=== PATIENT | male | born 1940 | race Caucasian/White ===

== ENCOUNTER 2019-08-18 06:56 | Day surgery (SDC) | payer OTHER ==
[~2019-08-18] VITALS: Ht 170.2 cm; Wt 65.8 kg
--- NOTE | ~2019-08-18 | O ---
[facility] [place] [address] OPERATIVE REPORT Name: ESTEFANY MULLER Room #: 150-2 [facility]#: [id number] Admission: 08/18/19 Attend Phys: Jaleel Uriostegui MD Discharge: Date of : 38 Report #: [id number] THIS REPORT FOR: //name// CC: RYNE Uriostegui Physician staff DATE OF SERVICE: 08/18/2019 PREOPERATIVE DIAGNOSES: Deviated nasal septum with nasal airway obstruction, chronic maxillary and ethmoid sinusitis. POSTOPERATIVE DIAGNOSES: Deviated nasal septum with nasal airway obstruction, chronic maxillary and ethmoid sinusitis. OPERATIVE PROCEDURE: Nasal septoplasty, endoscopic bilateral maxillary antrostomies with removal of polyps, bilateral complete ethmoidectomies. ANESTHESIA: General by laryngeal mask. DESCRIPTION OF PROCEDURE: The patient was taken to the operating room and placed in supine position. General anesthesia was induced by laryngeal mask. Once adequate general anesthesia was obtained, local nasal anesthesia was induced by submucoperichondrial injection of 1% lidocaine with 1:100,000 epinephrine and topical application of cocaine solution. The patient was then draped in a sterile manner. The patient had a nasal septal deviation primarily to the right side. A hemitransfixion incision was placed on the right side of the nose and the mucoperichondrium and mucoperiosteum was elevated off the septum. The cartilage was incised in front of the bony cartilaginous junction and a portion of cartilage and bone was removed from the midportion of the septum. There was a septal spur along the floor consisting of hypertrophic cartilage and a fracture of the maxillary crest. The cartilage was removed as a long strip, the maxillary crest was infractured and rongeured. After these maneuvers, the septum sat more in the midline. The hemitransfixion incision was then closed with 4-0 chromic suture and a 4-0 plain mattress sutures placed as well. The nasal endoscope was used to visualize the left nasal cavity and the middle turbinate was deviated medially. The uncinate process was incised using the microdebrider and then removed using the microdebrider. The natural opening of the maxillary sinus was located. It was filled with polyps and very swollen tissue. There was purulence within the maxillary sinus and this was suctioned and removed. An ethmoidectomy was performed by removing the ethmoidal bulla and then following the ethmoid air cells back to and through the basal lamella and then forward along the lamina papyracea and fovea ethmoidalis to complete the ethmoidectomy anteriorly. Surgiflo was placed into the ethmoid cavity for hemostasis. The exact same procedure was performed on the opposite side. The patient tolerated the procedure well. Blood loss approximately 25 mL. The [address] [address] OPERATIVE REPORT Name: ESTEFANY MULLER Room #: 150-2 [facility]#: [id number] Admission: 08/18/19 Attend Phys: Jaleel Uriostegui MD Discharge: Date of : 38 Report #: [id number] patient was then awoken and taken to recovery room in stable condition for postoperative monitoring. By: [id number] Jaleel Uriostegui MD /nt
[~2019-08-18 06:56] MED LIST: CEFDINIR300 MG PO; HYTRIN 2MG CAPSU2 M1 PO; LISINOPRIL10 MG PO; MULTI VITAMIN1 EACH PO; OMEPRAZOLE 20 M20 M1 PO; TYLENOL PM EX-1 EACH PO
--- NOTE | 2019-08-18 07:41 | H ---
[facility] [place] [address] HISTORY AND PHYSICAL Name: ESTEFANY MULLER Room #: REG [facility].#: [id number] Admission: 08/18/19 Attend Phys: Jaleel Uriostegui MD Discharge: Date of : 38 Report #: [id number] THIS REPORT FOR: //name// CC: RYNE Uriostegui Physician staff Procedure is scheduled for 08/18. HISTORY OF PRESENT ILLNESS: The patient has been getting frequent sinus infections. He has significant cough, nasal congestion, drainage and has been on frequent antibiotics. A CT scan of his sinuses shows a deviated nasal septum anteriorly to the right with a hypoplastic right maxillary sinus with mucous membrane thickening and blockage of the ostiomeatal area. PAST MEDICAL HISTORY: Otherwise, significant for kidney cancer and high blood pressures. MEDICATIONS: Prilosec. ALLERGIES: He is allergic to ASPIRIN and MOTRIN. PHYSICAL EXAMINATION: He has a deviated nasal septum to the right side with crusting and debris on both sides with dry and swollen nasal mucosa. 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 PLAN: Nasal septoplasty, endoscopic right maxillary antrostomy and right anterior ethmoidectomy. <ELECTRONICALLY SIGNED> By: Jaleel Uriostegui MD 08/18/19 0741 [id number] [id number] Jaleel Uriostegui MD /nt
--- NOTE | 2019-08-18 08:27 | EKG ---
[address] [address] ELECTROCARDIOGRAM REPORT Name: ESTEFANY MULLER Room #: REG [facility]#: [id number] Admission: 08/18/19 Attend Phys: Jaleel Uriostegui MD Discharge: Date of : 38 Report #: [id number] THIS REPORT FOR: //name// [facility] Test Date: 2019-08-18 Test Time: 07:44:47 Pat Name: ESTEFANY MULLER Department: Room: Gender: Raw Material [employer]: [place] : 1940 Requested By: Jaleel Uriostegui Order Number: [id number] MD: Jeff Clancy Measurements Intervals [place] Rate: 76 P: 75 [place]: 148 QRS: 17 QRSD: 90 T: 54 QT: 386 QTc: 435 Interpretive Statements Sinus rhythm Normal tracing No previous ECG available for comparison Electronically Signed On 08-18-2019 8:27:21 [employer]ERSON by Jeff Clancy [email or web address] <ELECTRONICALLY SIGNED> By: Jeff Clancy MD, [facility] 08/18/19 0827 0744 0744 Jeff Clancy MD, FACC /EPI
[2019-08-18 08:30] VITALS: BP 132/76
[2019-08-18 10:18] VITALS: BP 132/76
== END 2019-08-18 11:20 | disposition home or self-care (01) ==
LOC: OR 06:56 → TBA 10:02 → OR 10:03
DX: J34.2 Deviated nasal septum (principal); J34.89 Other specified disorders of nose and nasal sinuses; J32.0 Chronic maxillary sinusitis; J32.2 Chronic ethmoidal sinusitis; I10 Essential (primary) hypertension; Z98.890 Other specified postprocedural states; Z79.899 Other long term (current) drug therapy; Z85.528 Personal history of other malignant neoplasm of kidney; Z88.8 Allergy status to other drugs, medicaments and biological substances
CPT/HCPCS: 50010; 50101; 50386; 50398; 51751; 56524; 56528; 56635; 62110; 62900; 70005